=== PATIENT | male | born 1945 | race Two or more races ===

== ENCOUNTER 2021-02-16 08:10 | Outpatient (CLI) | payer MEDICARE ==
[~2021-02-16] VITALS: Ht 170.2 cm; Wt 72.1 kg
[~2021-02-16 08:10] MED LIST: BENA10TA74 PO; LOVA20TA2 PO; METO50TA17 PO
[2021-02-16 09:29] LABS: ALANINE AMINOTRANSFERASE 23 U/L (12-78); ALBUMIN 4.1 G/DL (3.4-5.0); ALBUMIN/GLOBULIN RATIO 1.1 (1.1-1.5); ALKALINE PHOSPHATASE 73 IU/L (46-116); ANION GAP 11 (8-16); ASPARTATE AMINO TRANSFERASE 13 U/L (10-37); BILIRUBIN,TOTAL 0.7 MG/DL (0.1-1.0); BLOOD UREA NITROGEN 17 MG/DL (7-18); BUN/CREATININE RATIO 17.9 (5.4-32.0); CALCIUM 9.3 MG/DL (8.5-10.1); CHLORIDE 106 MMOL/L (99-107); CHOL/HDL RATIO 4.4 (0.00-4.99); CHOLESTEROL 216 MG/DL (0-200); CREATININE 0.95 MG/DL (0.60-1.10); GLUCOSE 122 MG/DL (70-104); HDL CHOLESTEROL 49 MG/DL (35-60); LDL CHOLESTEROL 131 MG/DL (50-100); POTASSIUM 4.1 MMOL/L (3.5-5.1); SODIUM 144 MMOL/L (135-145); TOTAL CARBON DIOXIDE 27.2 MMOL/L (24-32); TOTAL PROTEIN 7.8 G/DL (6.4-8.2); TRIGLYCERIDES 108 MG/DL (20-135); eGFR 77 ML/MIN
[2021-02-16] MEDS ORDERED: regadenoson 0.4mg/5ml syringe IV ONE (09:40)
[2021-02-16] MEDS ORDERED: metoprolol tartrate 1mg/ml inj IV PRN (10:00)
[2021-02-16] MEDS ORDERED: nitroGLYCERIN 0.4mg SUBLingual tab SL PRN (10:00)
[2021-02-16] MEDS ORDERED: [UNRECOGNIZED DRUG - CODE] IVP (10:21)
[2021-02-16 11:03] VITALS: BP 169/67
[2021-02-16 11:25] VITALS: BP 130/64
[2021-02-16 11:26] VITALS: BP 134/67
[2021-02-16 11:27] VITALS: BP 143/70
[2021-02-16 11:28] VITALS: BP 139/59
[2021-02-16 11:29] VITALS: BP 138/64
== END 2021-02-16 23:59 | disposition home or self-care (01) ==
LOC: RAD 08:10
PROVIDERS: ATTEND Internal Medicine Cardiovascular Disease
DX: I25.10 Atherosclerotic heart disease of native coronary artery without angina pectoris (principal); E78.5 Hyperlipidemia, unspecified
CPT/HCPCS: 36415; 78452; 80053; 80061; 93017; 93306; A9500; J2785